=== PATIENT | female | born 1970 | race Caucasian/White ===

== ENCOUNTER 2017-08-15 20:42 | Emergency (ER) | payer MEDICAID ==
[2017-08-16 02:10] VITALS: BP 129/85
== END 2017-08-16 02:10 | disposition home or self-care (01) ==
LOC: ED 20:42
DX: G43.909 Migraine, unspecified, not intractable, without status migrainosus (principal)
CPT/HCPCS: J1170; J1200; J1885; J2765; J7030

== ENCOUNTER 2017-10-09 20:33 | Emergency (ER) | payer MEDICAID ==
[~2017-10-09] VITALS: Ht 162.6 cm; Wt 66.2 kg
[2017-10-09 20:40] VITALS: BP 148/103
[2017-10-09 21:47] LABS: UA SPECIFIC GRAVITY 1.025 (1.005-1.035); microscopic required? YES; urine erythrocyte 3+ (NEGATIVE)
[2017-10-09 21:53] LABS: BASOPHIL % 0.7 % (0-2); PLATELET COUNT 274 x10^3mcL (130-400)
== END 2017-10-10 00:20 | disposition home or self-care (01) ==
LOC: ED 20:33
PROVIDERS: Emergency Medicine
DX: N93.8 Other specified abnormal uterine and vaginal bleeding (principal); N39.0 Urinary tract infection, site not specified; G43.909 Migraine, unspecified, not intractable, without status migrainosus; M19.90 Unspecified osteoarthritis, unspecified site
CPT/HCPCS: 36415; J1885

== ENCOUNTER 2018-11-24 09:10 | Emergency (ER) | payer BC ==
[~2018-11-24] VITALS: Ht 157.5 cm; Wt 69.6 kg
[2018-11-24 11:35] VITALS: BP 154/97
== END 2018-11-24 11:35 | disposition home or self-care (01) ==
LOC: ED 09:10
DX: J06.9 Acute upper respiratory infection, unspecified (principal); I10 Essential (primary) hypertension; G43.909 Migraine, unspecified, not intractable, without status migrainosus; M19.90 Unspecified osteoarthritis, unspecified site; D25.9 Leiomyoma of uterus, unspecified
CPT/HCPCS: Q0092